=== PATIENT | female | born 1965 | race Caucasian/White ===

== ENCOUNTER 2016-08-13 09:12 | Emergency (ER) | payer OTHER ==
--- NOTE | 2016-08-13 10:09 | ED CLINICAL REPORT ---
Clinical Report - Physicians/Mid Levels [facility] [address] [place] [address] 08/13/2016 9:13 Patient: REBECCA AVENDANO, Wednesday Time Seen: 09:28. Arrived- By private vehicle. Historian- patient. HISTORY OF PRESENT ILLNESS Chief Complaint: Injury to the right wrist. The injury happened today. Fell. Occurred on a street. Patient is experiencing moderate pain. No other injury. REVIEW OF SYSTEMS The patient has had swelling. No tingling, numbness, weakness, foreign body or skin laceration. All systems otherwise negative, except as recorded above. PAST HISTORY Problems: Migraine Headache. Substance Abuse. Constipation. Immunizations. LNMP - Last Normal Menstrual Period. Hypertension. Dental Pain. Additional Surgeries: Hysterectomy. Tubal Ligation. Medications: None. Allergies: No Known Drug Allergy. SOCIAL HISTORY Smoker- current status unknown. Occasional alcohol use. No drug use. ADDITIONAL NOTES The nursing notes have been reviewed. PHYSICAL EXAM Vital Signs: 08/13/2016 09:23 BP: 130/94. HR: 95. RR: 20. O2 saturation: 100%. Temp: 98.9 F. Pain level now: 8/10. Have been reviewed. Appearance: Alert. Oriented X3. No acute distress. Head: Head atraumatic. Eyes: Pupils equal, round and reactive to light. Eyes normal inspection. ENT: Nose normal. Neck: Normal inspection. Neck supple. CVS: Normal heart rate and rhythm. Heart sounds normal. Pulses normal. Respiratory: No respiratory distress. Breath sounds normal. Back: ROM normal. Skin: Skin warm and dry. Skin intact. Extremities: Right distal radius: moderate tenderness and swelling. Limited ROM at the wrist secondary to pain (diminished flexion, extension, radial deviation and ulnar deviation). Neurovascular intact distally. No erythema, laceration, abrasion, ecchymosis or puncture wound. No foreign body or deformity. No limitation of thumb movement. No hand injury. Hand and wrist exam otherwise negative. Extremities otherwise negative. Neuro, Vascular and Tendons: Vascular status intact. Sensation intact. Motor intact. Tendon function intact. Neuro: No motor deficit. No sensory deficit. (Grossly oriented.). LABS, X-RAYS, AND EKG Rt Wrist X-ray: Normal alignment. No bony lesion, air in the soft tissue or foreign body. Fracture of the distal radius. No open, comminuted, intraarticular, displaced or angulated right radius fracture. Soft tissues normal. Joint spaces normal. Views: AP, lateral and oblique. Technique: good. The X-rays were independently viewed by me, interpreted by the radiologist and contemporaneously by me and discussed with the radiologist. Prior films were not available for comparison. Pulse Oximetry: 08/13/2016 09:23 O2 saturation: 100%. (FIO2 - room air). Interpretation: normal. PROGRESS AND PROCEDURES Splint Application: Fiberglass short arm splint applied to right wrist. Splint applied by nazario with direct supervision by me and the ED physician. Reassessed extremity following splint application. Neurovascular intact. Course of Care: Pt was splinted and given an Rx for pain medication. Need for ortho f/u was discussed. Patient counseled in person regarding the patient's stable condition, test results, diagnosis and need for follow-up. Concerns were addressed. Old medical records reviewed. Disposition: Discharged. Condition: stable and improved. CLINICAL IMPRESSION Closed nondisplaced transverse fracture of the distal right radius. No intraarticular fracture of the radius. No angulated fracture of the radius. INSTRUCTIONS Apply ice for 15-20 minutes three times a day as needed and until better. Don't apply ice directly to skin and don't use while asleep. Warnings: GENERAL WARNINGS: Return or contact your physician immediately if your condition worsens or changes unexpectedly, if not improving as expected, or if other problems arise. Prescription Medications: Oxycodone/APAP 5 mg/325 mg: take 1-2 tablets orally every 6 hours as needed for pain. Dispense fifteen (15). No refill. Understanding of the discharge instructions verbalized by patient. Follow-up with: Brady Adames MD, Orthopedic Surgeon, , [address], , [place], [id number] Follow up. Call for the next available appointment. Reason for referral: Wrist fracture. (Electronically signed by Judith Hinojosa MD 08/17/2016 11:18)
--- NOTE | 2016-08-13 10:09 | ED CLINICAL REPORT ---
Clinical Report - Physicians/Mid Levels [facility] [address] [place] [address] 08/13/2016 9:13 Patient: REBECAC AVENDANO, Wednesday Time Seen: 09:28. Arrived- By private vehicle. Historian- patient. HISTORY OF PRESENT ILLNESS Chief Complaint: Injury to the right wrist. The injury happened today. Fell. Occurred on a street. Patient is experiencing moderate pain. No other injury. REVIEW OF SYSTEMS The patient has had swelling. No tingling, numbness, weakness, foreign body or skin laceration. All systems otherwise negative, except as recorded above. PAST HISTORY Problems: Migraine Headache. Substance Abuse. Constipation. Immunizations. LNMP - Last Normal Menstrual Period. Hypertension. Dental Pain. Additional Surgeries: Hysterectomy. Tubal Ligation. Medications: None. Allergies: No Known Drug Allergy. SOCIAL HISTORY Smoker- current status unknown. Occasional alcohol use. No drug use. ADDITIONAL NOTES The nursing notes have been reviewed. PHYSICAL EXAM Vital Signs: 08/13/2016 09:23 BP: 130/94. HR: 95. RR: 20. O2 saturation: 100%. Temp: 98.9 F. Pain level now: 8/10. Have been reviewed. Appearance: Alert. Oriented X3. No acute distress. Head: Head atraumatic. Eyes: Pupils equal, round and reactive to light. Eyes normal inspection. ENT: Nose normal. Neck: Normal inspection. Neck supple. CVS: Normal heart rate and rhythm. Heart sounds normal. Pulses normal. Respiratory: No respiratory distress. Breath sounds normal. Back: ROM normal. Skin: Skin warm and dry. Skin intact. Extremities: Right distal radius: moderate tenderness and swelling. Limited ROM at the wrist secondary to pain (diminished flexion, extension, radial deviation and ulnar deviation). Neurovascular intact distally. No erythema, laceration, abrasion, ecchymosis or puncture wound. No foreign body or deformity. No limitation of thumb movement. No hand injury. Hand and wrist exam otherwise negative. Extremities otherwise negative. Neuro, Vascular and Tendons: Vascular status intact. Sensation intact. Motor intact. Tendon function intact. Neuro: No motor deficit. No sensory deficit. (Grossly oriented.). LABS, X-RAYS, AND EKG Rt Wrist X-ray: Normal alignment. No bony lesion, air in the soft tissue or foreign body. Fracture of the distal radius. No open, comminuted, intraarticular, displaced or angulated right radius fracture. Soft tissues normal. Joint spaces normal. Views: AP, lateral and oblique. Technique: good. The X-rays were independently viewed by me, interpreted by the radiologist and contemporaneously by me and discussed with the radiologist. Prior films were not available for comparison. Pulse Oximetry: 08/13/2016 09:23 O2 saturation: 100%. (FIO2 - room air). Interpretation: normal. PROGRESS AND PROCEDURES Splint Application: Fiberglass short arm splint applied to right wrist. Splint applied by nazario with direct supervision by me and the ED physician. Reassessed extremity following splint application. Neurovascular intact. Course of Care: Pt was splinted and given an Rx for pain medication. Need for ortho f/u was discussed. Patient counseled in person regarding the patient's stable condition, test results, diagnosis and need for follow-up. Concerns were addressed. Old medical records reviewed. Disposition: Discharged. Condition: stable and improved. CLINICAL IMPRESSION Closed nondisplaced transverse fracture of the distal right radius. No intraarticular fracture of the radius. No angulated fracture of the radius. INSTRUCTIONS Apply ice for 15-20 minutes three times a day as needed and until better. Don't apply ice directly to skin and don't use while asleep. Warnings: GENERAL WARNINGS: Return or contact your physician immediately if your condition worsens or changes unexpectedly, if not improving as expected, or if other problems arise. Prescription Medications: Oxycodone/APAP 5 mg/325 mg: take 1-2 tablets orally every 6 hours as needed for pain. Dispense fifteen (15). No refill. Understanding of the discharge instructions verbalized by patient. Follow-up with: Brady Adames MD, Orthopedic Surgeon, , [address], , [place], [id number] Follow up. Call for the next available appointment. Reason for referral: Wrist fracture. (Electronically signed by Judith Hinojosa MD 08/17/2016 11:18)
--- NOTE | 2016-08-13 10:09 | ED ORDER SUMMARY ---
..... Patient: THREE STARS, WEDNESDAY A OrderSheet [facility] VisitID: [id number] [address] [place] [address] 50y, F Registration Date/Time: 08/13/2016 ORDER SHEET Weight: 68.0 kg (stated) Allergies: No Known Drug Allergy GENERAL ORDERS: Wrist 3 or 4V Right Urgent (09:30 08/13/2016 SStone R.N. per protocol) (Ack 9:42 RKaruga) (9:43 RKaruga) Splint (UE) (Right) (Sugar Tong) (10:05 08/13/2016 An ALEJANDRE) MEDICATION ORDERS: IV FLUIDS: ORDER SHEET NOTES: [Electronically signed by Henny Carter R.N. (16:13 08/13/2016)] [Electronically signed by Judith Hinojosa MD (11:18 08/17/2016)] [Electronically locked/signed by Henny Carter R.N. (16:13 08/13/2016)]
--- NOTE | 2016-08-13 10:09 | ED NURSING NOTES ---
Clinical Report - Nurses [facility] [place] [address] 08/13/2016 9:13 Patient: REBECCA AVENDANO, Wednesday TRIAGE Triage time 09:23. Acuity: LEVEL 4. Chief Complaint: RIGHT UPPER EXTREMITY PAIN, SWELLING, NUMBNESS and TINGLING. SEPSIS SCREEN: Sepsis Screen. Negative (no infection suspected/documented). --09:27 Henny Carter R.N. 09:23 08/13/16. BP: 130/94. HR: 95. RR: 20. O2 saturation: 100%. Temp: 98.9 F. Pain level now: 03/18. --09:27 Henny Carter R.N. Weight: 68 kg stated. Height/Length: 70 inches Per Patient. BMI: 21.5. --09:26 Henny Carter R.N. Medications None. --09:24 Henny Carter R.N. Allergies No Known Drug Allergy. --09:24 Henny Carter R.N. History Arrived by private vehicle. Historian: patient. Primary physician (freddy). ( Patient slipped on the ice and fell on her outstretched right hand. Now with 8/10 pain in the right wrist, radiating up to her elbow.). This occurred just prior to arrival. It is described as radiating to the right upper extremity, upper arm and elbow. She has had swelling and numbness. PAST MEDICAL HX: Negative. SOCIAL HX: Heavy tobacco smoker- less than 1 pack per day. Alcohol use; consumes beer occasionally. No drug use. No infectious disease exposure. ABUSE ASSESSMENT: No report of abuse. SELF HARM ASSESSMENT: A self harm assessment was performed. The patient answered "no" to the question "Do you have thoughts of harming or killing yourself?". --:27 Henny Carter R.N. Interventions ID band on patient. To treatment room. --:27 Henny Carter R.N. PHYSICAL ASSESSMENT Ambulatory to room. GENERAL / NEURO / PSYCH: Oriented X 4. Appears in pain and anxious. EXTREMITIES: Right elbow: tenderness. Right wrist: tenderness, swelling and erythema. Limited ROM secondary to pain (diminished flexion and extension). SKIN: Skin intact. Skin is warm and dry. --09:31 Henny Carter R.N. NURSING PROGRESS NOTES The plan of care for this patient includes an assessment with efforts to address the patient's anxiety. This plan of care was discussed with the patient. Cold pack applied. Reassurance given. Call light placed in reach. Side rails up. Patient ready for evaluation- chart flagged. Patient waiting for evaluation and radiology results. --09:32 Henny Carter R.N. ( XRay in room). --09:43 Enedelia Quinteros. DISPOSITION / DISCHARGE 10:54 08/13/16. BP: 136/92. HR: 62. RR: 22. O2 saturation: 100%. Pain level now: 01/16. --10:55 Henny Carter R.N. Condition at departure: improved and stable. The goals identified in the patient's plan of care were met. Discharge instructions provided and reviewed with the patient. Reviewed warnings. Reviewed medication(s) side effects information. Prescription(s) given to the patient. Patient verbalized understanding. Written instructions provided in Malay. The patient was discharged home. She left the Emergency Department ambulatory and via private vehicle. Patient driving. --11:20 Henny Carter R.N. Departure time: 1118. --11:20 Henny Carter R.N. Locked/Released at 08/13/2016 16:13 by Henny Carter R.N.
--- NOTE | 2016-08-13 10:09 | ED ORDER SUMMARY ---
..... Patient: THREE STARS, WEDNESDAY A OrderSheet [facility] VisitID: [id number] [address] [place] [address] 50y, F Registration Date/Time: 08/13/2016 ORDER SHEET Weight: 68.0 kg (stated) Allergies: No Known Drug Allergy GENERAL ORDERS: Wrist 3 or 4V Right Urgent (09:30 08/13/2016 SStone R.N. per protocol) (Ack 9:42 RKaruga) (9:43 RKaruga) Splint (UE) (Right) (Sugar [place]) (10:05 08/13/2016 An ALEJANDRE) MEDICATION ORDERS: IV FLUIDS: ORDER SHEET NOTES: [Electronically signed by Henny Carter R.N. (16:13 08/13/2016)] [Electronically signed by Jduith Hinojosa MD (11:18 08/17/2016)] [Electronically locked/signed by Henny Carter R.N. (16:13 08/13/2016)]
--- NOTE | 2016-08-13 13:17 | DIAGNOSTIC IMAGING REPORT ---
PROCEDURE: XR WRIST MIN 3 VIEWS - RIGHT INDICATION: TRAUMA/INJURY TECHNIQUE: Four views of the right wrist. COMPARISON: None. FINDINGS: There is an impaction fracture of the distal radius. There is a minimal displacement. IMPRESSION: 1. Impaction fracture distal radius.
--- NOTE | 2016-08-17 11:19 | ED DISCHARGE INSTRUCTIONS ---
Patient: THREE STARS, Wednesday General Instructions [facility] VisitID: [id number] [place] [address] 50y, F Registration Date/Time: 08/13/2016 Closed nondisplaced transverse fracture of the distal right radius. No intraarticular fracture of the radius. No angulated fracture of the radius. INSTRUCTIONS Apply ice for 15-20 minutes three times a day as needed and until better. Don't apply ice directly to skin and don't use while asleep. Warnings: GENERAL WARNINGS: Return or contact your physician immediately if your condition worsens or changes unexpectedly, if not improving as expected, or if other problems arise. Prescription Medications: Oxycodone/APAP 5 mg/325 mg: take 1-2 tablets orally every 6 hours as needed for pain. Dispense fifteen (15). No refill. Understanding of the discharge instructions verbalized by patient. Follow-up with: Brady Adames MD, Orthopedic Surgeon, , [address], , [place], [id number] Follow up. Call for the next available appointment. Reason for referral: Wrist fracture. ADDITIONAL INFORMATION Fracture: Wrist (General) You have a fracture (break) of a bone in your wrist. This may be a small crack or chip in the bone; or a major break with the broken parts pushed out of position. Wrist fractures are treated with a splint or cast. They take about 4-6 weeks to heal. Severe injuries may require surgery. Home Care: Keep your arm elevated to reduce pain and swelling. When sitting or lying down elevate your arm above the level of your heart. You can do this by placing your arm on a pillow that rests on your chest or on a pillow at your side. This is most important during the first 48 hours after injury. Apply an ice pack (ice cubes in a plastic bag, wrapped in a towel) over the injured area for 20 minutes every 1-2 hours the first day. You can place the ice pack inside the sling and directly over the splint/cast. Continue with ice packs 3-4 times a day for the next two days, then as needed for the relief of pain and swelling. Keep the cast/splint completely dry at all times. Bathe with your cast/splint out of the water, protected with a large plastic bag, rubber-banded at the top end. If a fiberglass splint/cast gets wet, you can dry it with a hair-dryer. You may use acetaminophen (Tylenol) or ibuprofen (Motrin, Advil) to control pain, unless another pain medicine was prescribed. [NOTE: If you have chronic liver or kidney disease or ever had a stomach ulcer or GI bleeding, talk with your doctor before using these medicines.] Follow Up with your doctor in one week, or as advised by our staff, to be sure the bone is healing properly. If a splint was applied, it will be changed to a cast during your follow-up visit. [NOTE: Any X-rays taken will be reviewed by a radiologist. You will be notified if there are any new findings that may affect your care.] Get Prompt Medical Attention if any of the following occur: The plaster cast or splint becomes wet or soft The fiberglass cast or splint remains wet for more than 24 hours Increased tightness or pain under the cast or splint Fingers become swollen, cold, blue, numb or tingly You have been given the following additional information: Fracture, Wrist [General] (Electronically signed by Judith Hinojosa MD 08/17/2016 11:18)
--- NOTE | 2016-08-17 11:19 | ED DISCHARGE INSTRUCTIONS ---
Patient: THREE STARS, Wednesday General Instructions [facility] VisitID: [id number] [place] [address] 50y, F Registration Date/Time: 08/13/2016 Closed nondisplaced transverse fracture of the distal right radius. No intraarticular fracture of the radius. No angulated fracture of the radius. INSTRUCTIONS Apply ice for 15-20 minutes three times a day as needed and until better. Don't apply ice directly to skin and don't use while asleep. Warnings: GENERAL WARNINGS: Return or contact your physician immediately if your condition worsens or changes unexpectedly, if not improving as expected, or if other problems arise. Prescription Medications: Oxycodone/APAP 5 mg/325 mg: take 1-2 tablets orally every 6 hours as needed for pain. Dispense fifteen (15). No refill. Understanding of the discharge instructions verbalized by patient. Follow-up with: Brady Adames MD, Orthopedic Surgeon, , [address], , [place], [address] Follow up. Call for the next available appointment. Reason for referral: Wrist fracture. ADDITIONAL INFORMATION Fracture: Wrist (General) You have a fracture (break) of a bone in your wrist. This may be a small crack or chip in the bone; or a major break with the broken parts pushed out of position. Wrist fractures are treated with a splint or cast. They take about 4-6 weeks to heal. Severe injuries may require surgery. Home Care: Keep your arm elevated to reduce pain and swelling. When sitting or lying down elevate your arm above the level of your heart. You can do this by placing your arm on a pillow that rests on your chest or on a pillow at your side. This is most important during the first 48 hours after injury. Apply an ice pack (ice cubes in a plastic bag, wrapped in a towel) over the injured area for 20 minutes every 1-2 hours the first day. You can place the ice pack inside the sling and directly over the splint/cast. Continue with ice packs 3-4 times a day for the next two days, then as needed for the relief of pain and swelling. Keep the cast/splint completely dry at all times. Bathe with your cast/splint out of the water, protected with a large plastic bag, rubber-banded at the top end. If a fiberglass splint/cast gets wet, you can dry it with a hair-dryer. You may use acetaminophen (Tylenol) or ibuprofen (Motrin, Advil) to control pain, unless another pain medicine was prescribed. [NOTE: If you have chronic liver or kidney disease or ever had a stomach ulcer or GI bleeding, talk with your doctor before using these medicines.] Follow Up with your doctor in one week, or as advised by our staff, to be sure the bone is healing properly. If a splint was applied, it will be changed to a cast during your follow-up visit. [NOTE: Any X-rays taken will be reviewed by a radiologist. You will be notified if there are any new findings that may affect your care.] Get Prompt Medical Attention if any of the following occur: The plaster cast or splint becomes wet or soft The fiberglass cast or splint remains wet for more than 24 hours Increased tightness or pain under the cast or splint Fingers become swollen, cold, blue, numb or tingly You have been given the following additional information: Fracture, Wrist [General] (Electronically signed by Judith Hinojosa MD 08/17/2016 11:18)
--- NOTE | 2016-08-17 11:19 | ED MAR SUMMARY ---
..... Medication Administration Record [facility] [address] [place], [place] [id number] Patient: THREE , Wednesday Visit ID: [id number] 50y, F Weight: 68.0 kg Height/Length: 70 in BMI: 21.5 ALLERGIES: No Known Drug Allergy
--- NOTE | 2016-08-17 11:19 | ED MED RECONCILIATION SUMMARY ---
Patient: THREE STARS, WEDNESDAY A Medication Reconciliation Report [facility] VisitID: [id number] [place] [address] 50y, F Registration Date/Time: 08/13/2016 Weight: 68.0 kg Height/Length: 70 in. BMI: 21.5 ALLERGIES: No Known Drug Allergy The patient's Home Medications are listed below: NONE. The source(s) of the original Home Medication information: Not obtained. The following Medications were given to the patient in the Emergency Department: None. The following Medications were prescribed to the patient: Oxycodone/APAP 5 mg/325 mg: take 1-2 tablets orally every 6 hours as needed for pain. Dispense fifteen (15). No refill. -- Judith Hinojosa MD
--- NOTE | 2016-08-17 11:19 | ED MED RECONCILIATION SUMMARY ---
Patient: THREE STARS, WEDNESDAY A Medication Reconciliation Report [facility] VisitID: [id number] [place] [address] 50y, F Registration Date/Time: 08/13/2016 Weight: 68.0 kg Height/Length: 70 in. BMI: 21.5 ALLERGIES: No Known Drug Allergy The patient's Home Medications are listed below: NONE. The source(s) of the original Home Medication information: Not obtained. The following Medications were given to the patient in the Emergency Department: None. The following Medications were prescribed to the patient: Oxycodone/APAP 5 mg/325 mg: take 1-2 tablets orally every 6 hours as needed for pain. Dispense fifteen (15). No refill. -- Judith Hinojosa MD
--- NOTE | 2016-08-17 11:19 | ED MAR SUMMARY ---
..... Medication Administration Record [facility] [address] [place], [place] [id number] Patient: THREE , Wednesday Visit ID: [id number] 50y, F Weight: 68.0 kg Height/Length: 70 in BMI: 21.5 ALLERGIES: No Known Drug Allergy
== END 2016-08-13 11:18 | disposition home or self-care (01) ==
LOC: ED SRH 09:12
DX: S52.501A Unspecified fracture of the lower end of right radius, initial encounter for closed fracture (principal); W19.XXXA Unspecified fall, initial encounter; Y93.9 Activity, unspecified; Y92.410 Unspecified street and highway as the place of occurrence of the external cause; Y99.9 Unspecified external cause status; I10 Essential (primary) hypertension; F17.200 Nicotine dependence, unspecified, uncomplicated

== ENCOUNTER 2016-09-05 11:55 | Emergency (ER) | payer OTHER ==
--- NOTE | 2016-09-05 13:13 | ED CLINICAL REPORT ---
Clinical Report - Physicians/Mid Levels [facility] [address] [place] [address] 09/05/2016 11:55 Patient: REBECCA AVENDANO, Wednesday Time Seen: 12:25. Arrived- By private vehicle. Historian- patient. HISTORY OF PRESENT ILLNESS Chief Complaint: BACK PAIN Right wrist and hand pain. Right mid back pain. This started several weeks ago and is still present. It was gradual in onset and has been waxing/waning. At its maximum, severity described as moderate. When seen in the E.D., severity described as moderate. Modifying factors- worsened by movement and walking. Relieved by rest. No fatigue or weakness. Denies sleep problem. She has had muscle aches (right mid back - states, "muscle spasms"). (Pt states that the splint is irritating her.). Similar symptoms previously: Recent medical care: The patient was seen recently at this facility in the emergency department. REVIEW OF SYSTEMS The patient has had a hysterectomy. No fever, sore throat, sinus drainage, cough or difficulty breathing. No abdominal pain, nausea, vomiting, diarrhea or black stools. No bloody stools, chills, difficulty with urination, abnormal bleeding or skin rash. No headache. The patient has had moderate mid back pain. No sensory loss, motor weakness or symptom related to bladder or bowel dysfunction. It has been similar to previous symptoms. No pain radiating to left leg or right leg. She has had mild difficulty with ambulation (mid back). It has been associated with pain. All systems otherwise negative, except as recorded above. PAST HISTORY PROBLEMS: Radius Fracture. Migraine Headache. Substance Abuse. Abdominal Pain. Pyelonephritis. Cervical Strain. Back Pain. UTI - Urinary Tract Infection. Constipation. Hypertension. Dental Pain. Dental Caries. SURGERIES: Hysterectomy. Tubal Ligation. SOCIAL HISTORY Smoker- current status unknown. Occasional alcohol use. History of drug use: marijuana. ADDITIONAL NOTES The nursing notes have been reviewed. PHYSICAL EXAM Vital Signs: 09/05/2016 12:10 BP: 160/100. HR: 86. RR: 18. O2 saturation: 99%. Temp: 98.1 F. Pain level now: 03/18. Appearance: Alert. Anxious. Patient in mild distress. Eyes: Eyes normal inspection. No scleral icterus or pale conjunctivae. ENT: Nose normal. Neck: Normal inspection. Neck supple. CVS: Normal heart rate and rhythm. Heart sounds normal. Pulses normal. Respiratory: No respiratory distress. Breath sounds normal. Chest nontender. Abdomen: No visible injury. Soft and nontender. No mass. Back: Normal inspection. Moderate soft-tissue tenderness in the right mid thoracic area. No CVA tenderness or vertebral point tenderness. Skin: Skin warm and dry. Normal skin color. No rash. Normal skin turgor. Extremities: Right wrist: moderate tenderness and mild swelling. Limited ROM secondary to pain. Neurovascular intact distally. No erythema, laceration, abrasion, ecchymosis or puncture wound. No foreign body or deformity. No lower extremity edema. Neuro: Oriented X 3. No motor deficit. No sensory deficit. LABS, X-RAYS, AND EKG Pulse Oximetry: 09/05/2016 12:10 O2 saturation: 99%. (FIO2 - room air). Interpretation: normal. PROGRESS AND PROCEDURES Splint Application: Fiberglass short arm splint and sugar tong splint applied to right wrist and forearm. Splint applied by tech with direct supervision by the ED physician. Reassessed extremity following splint application. Neurovascular intact. Course of Care: Zofran 4 mg ODT PO given. Flexeril 10 mg PO given. No signs of compartment syndrome or RSD now - pt has been splinted (no cast). She was unable to f/u with hand / ortho surgery for reported insurance reasons. She has pcp follow up for referral on Wednesday. New splint applied. Pt also with muscular right mid thoracic area pain. Patient/family counseled. Old ED records reviewed. Disposition: Discharged. Condition: stable and improved. CLINICAL IMPRESSION Essential hypertension. Chronic substance abuse- tobacco (cigarettes), marijuana. Acute nontraumatic thoracic back pain associated with muscle strain. No radiculopathy. Closed nondisplaced transverse fracture of the right distal radius. INSTRUCTIONS Wear fiberglass splint until released. Do not work for three days. Drink plenty of fluids. Do not smoke. Seek medical help to quit smoking. No alcohol. Warnings: Further evaluation is necessary in order to recheck abnormal lab, obtain test results, conduct further tests and assess the possibility of serious illness. It is very important to follow up with a physician. CONTROLLED SUBSTANCE WARNINGS. GENERAL WARNINGS: Return or contact your physician immediately if your condition worsens or changes unexpectedly, if not improving as expected, or if other problems arise. Prescription Medications: Hydrocodone/APAP 5mg / 325mg: take 1-2 orally every 12 hours as needed for pain. Dispense ten (10). No refill. Flexeril 10 mg: Take 1 orally every 8 hours as needed for muscle spasm. Dispense twenty (20). No refills. Substitution is permissible. Follow-up: Follow up with your doctor Iker Wednesday as scheduled. (Electronically signed by Matt Garcia DO 09/05/2016 16:22)
--- NOTE | 2016-09-05 13:13 | ED NURSING NOTES ---
Clinical Report - Nurses [facility] [place] [address] 09/05/2016 11:55 Patient: REBECCA AVENDANO, Wednesday TRIAGE Triage time 12:15. Acuity: LEVEL 3. Chief Complaint: RIGHT UPPER EXTREMITY PAIN, SWELLING and NUMBNESS. Location of symptoms- (Ring from rt 5th finger cut off.). LEFT UPPER EXTREMITY NUMBNESS. Alert. No acute distress. SEPSIS SCREEN: Sepsis Screen: negative. Negative (no infection suspected/documented). EMILY COMA SCORE: Emily Coma Scale: 15- eyes open spontaneously (4); best verbal response- oriented x 4 (5); best motor response- obeys commands (6). --12:24 Iris Quinn R.N. 12:10 09/05/16. BP: 160/100. HR: 86. RR: 18. O2 saturation: 99%. Temp: 98.1 F. Pain level now: 03/18. --12:24 Iris Quinn R.N. Weight: 68 kg stated. Height/Length: 71 inches Per Patient. BMI: 20.9. --12:20 Iris Quinn R.N. Medications None. --12:20 Iris Quinn R.N. Allergies No Known Drug Allergy. --12:20 Iris Quinn R.N. Medication/allergy information source: the patient. --12:24 Iris Quinn R.N. History Arrived by private vehicle. Historian: patient. Accompanied by family. Primary physician (freddy). Injury occurred. Location of injuries: right wrist. This occurred (3 weeks ago). It is described as radiating to the right upper extremity and hand. She has had swelling, redness and numbness. Treatment BUSINESS APPLICATIONS ANALYST: Ice and splint. PAST MEDICAL HX: Tetanus status: unknown. The patient has had a hysterectomy. SOCIAL HX: Light tobacco smoker (cigarette)- less than 1/2 a pack per day. Occasional alcohol use. History of drug use: marijuana. Recently used drugs days ago. No infectious disease exposure. ABUSE ASSESSMENT: No report of abuse. FALL RISK ASSESSMENT: Fall risk assessment completed. No fall risk identified. NUTRITIONAL RISK ASSESSMENT: The nutritional risk assessment revealed no deficiencies. FUNCTIONAL ASSESSMENT: Functional assessment: no impairments noted. LEARNING NEEDS ASSESSMENT: The learning needs assessment revealed no barriers. SKIN INTEGRITY ASSESSMENT: Skin integrity risk assessment completed. No skin integrity risk identified. --12:24 Iris Quinn R.N. PROBLEMS: Radius Fracture. Migraine Headache. Substance Abuse. Abdominal Pain. Pyelonephritis. Cervical Strain. Back Pain. UTI - Urinary Tract Infection. Constipation. Hypertension. Dental Pain. Dental Caries. --12:22 Iris Quinn R.N. ADDITIONAL SURGERIES: Hysterectomy. Tubal Ligation. --12:22 Iris Quinn R.N. Interventions ID band on patient. To room. --12:24 Iris Quinn R.N. PHYSICAL ASSESSMENT Ambulatory to room. GENERAL / NEURO / PSYCH: Appears in pain and anxious. She has had pre-existing intermittent numbness with tingling. EXTREMITIES: Erythema on the extremities. Upper extremity edema. Right wrist: tenderness and swelling. SKIN: Skin intact. Skin is warm and dry. --12:25 Iris Quinn R.N. NURSING PROGRESS NOTES Cold pack applied. Extremity elevated. Two patient identifiers checked. Call light placed in reach. Side rails up x 1. Bed placed in lowest position. Brakes of bed on. Patient ready for evaluation- chart flagged. --12:25 Iris Quinn R.N. Short arm sugar tong fiberglass upper extremity splint applied to right arm by tech. Distal pulses intact, sensation intact and motor within normal limits. --13:58 Brendan Whatley 13:32 09/05/2016 Zofran ODT (Ondansetron) PO 4 mg given. Allergies verified and confirmed 5 rights. --16:03 Iris Quinn R.N. 13:33 09/05/2016 Flexeril (Cyclobenzaprine HCl) PO 10 mg given. Allergies verified and confirmed 5 rights. --16:04 Iris Quinn R.N. DISPOSITION / DISCHARGE 13:00. Condition at departure: improved. No learning barriers present. Discharge instructions provided and reviewed with the patient. Reviewed medication(s) side effects, precautions, dosing and course information. Prescription(s) given to the patient. Work note given. Patient verbalized understanding. Written instructions provided in Sudanese. The patient was discharged home. She left the Emergency Department ambulatory and via private vehicle. Patient driving. Medication list reviewed and validated. --16:02 Iris Quinn R.N. 13:00 09/05/16. BP: 165/98. HR: 89. RR: 18. O2 saturation: 100% on room air. Temp: deferred. Pain level now: 11/16. 12:10 09/05/16. BP: 160/100. HR: 86. RR: 18. O2 saturation: 99%. Temp: 98.1 F. Pain level now: 03/18. --16:02 Iris Quinn R.N. Departure time: 1345, the correct dc time. --16:05 Iris Quinn R.N. Locked/Released at 09/05/2016 16:20 by Iris Quinn R.N.
--- NOTE | 2016-09-05 13:14 | ED ORDER SUMMARY ---
..... Patient: REBECCA , WEDNESDAY A OrderSheet [facility] VisitID: [id number] [place] [address] 50y, F Registration Date/Time: 09/05/2016 ORDER SHEET Weight: 68.0 kg (stated) Allergies: No Known Drug Allergy GENERAL ORDERS: Wrist 3 or 4V Right Urgent (12:40 09/05/2016 [facility]) (Ack 13:06 LTapper) (13:08 Raheel) Splint (UE) (Right) (Sugar Tong) (Short Arm) (12:40 09/05/2016 [facility]) (Ack 12:58 Bob) (13:31 SRoberts R.N.) MEDICATION ORDERS: Hydrocodone-APAP PO 5/325 mg (NOW, HIGH ALERT MEDICATION) (13:17 09/05/2016 [facility]) (Ack 13:31 SRoberts R.N.) (Cancelled: Other13:36 [facility]) Zofran ODT PO 4 mg (NOW) (13:17 09/05/2016 [facility]) (Ack 13:31 SRoberts R.N.) (16:03 SRoberts R.N.) Flexeril PO 10 mg (NOW) (13:18 09/05/2016 [facility]) (Ack 13:31 SRoberts R.N.) (16:04 SRoberts R.N.) IV FLUIDS: ORDER SHEET NOTES: [Electronically signed by Iris Quinn R.N. (16:20 09/05/2016)] [Electronically signed by Matt Garcia DO (16:22 09/05/2016)] [Electronically locked/signed by Iris Quinn R.N. (16:20 09/05/2016)]
--- NOTE | 2016-09-05 13:14 | ED ORDER SUMMARY ---
..... Patient: REBECCA , WEDNESDAY A OrderSheet [facility] VisitID: [id number] [place] [address] 50y, F Registration Date/Time: 09/05/2016 ORDER SHEET Weight: 68.0 kg (stated) Allergies: No Known Drug Allergy GENERAL ORDERS: Wrist 3 or 4V Right Urgent (12:40 09/05/2016 [facility]) (Ack 13:06 LTapper) (13:08 Raheel) Splint (UE) (Right) (Sugar Tong) (Short Arm) (12:40 09/05/2016 [facility]) (Ack 12:58 Bob) (13:31 SRoberts R.N.) MEDICATION ORDERS: Hydrocodone-APAP PO 5/325 mg (NOW, HIGH ALERT MEDICATION) (13:17 09/05/2016 [facility]) (Ack 13:31 SRoberts R.N.) (Cancelled: Other13:36 [facility]) Zofran ODT PO 4 mg (NOW) (13:17 09/05/2016 [facility]) (Ack 13:31 SRoberts R.N.) (16:03 SRoberts R.N.) Flexeril PO 10 mg (NOW) (13:18 09/05/2016 [facility]) (Ack 13:31 SRoberts R.N.) (16:04 SRoberts R.N.) IV FLUIDS: ORDER SHEET NOTES: [Electronically signed by Iris Quinn R.N. (16:20 09/05/2016)] [Electronically signed by Matt Garcia DO (16:22 09/05/2016)] [Electronically locked/signed by Iris Quinn R.N. (16:20 09/05/2016)]
--- NOTE | 2016-09-05 14:04 | DIAGNOSTIC IMAGING REPORT ---
PROCEDURE: XR WRIST MIN 3 VIEWS - RIGHT INDICATION: Right radius fracture, follow-up TECHNIQUE: Four views COMPARISON: Right wrist x-ray 08/13/2016 FINDINGS: Minimally displaced impaction fracture distal radius is essentially unchanged. No other significant findings. IMPRESSION: 1. Stable minimally displaced impaction fracture of the distal right radius
--- NOTE | 2016-09-05 16:23 | ED MAR SUMMARY ---
..... Medication Administration Record [facility] [address] [place] [address] Patient: REBECCA , Wednesday Visit ID: [id number] 50y, F Weight: 68.0 kg Height/Length: 71 in BMI: 20.9 ALLERGIES: No Known Drug Allergy Given 13:32 09/05/2016 Iris Quinn R.N. Medication Administered: ZOFRAN ODT [PO] (ONDANSETRON), Dose: 4 mg PO. Medication Ordered: Zofran ODT PO 4 mg (NOW). Given 13:33 09/05/2016 Iris Quinn RPasqualeN. Medication Administered: FLEXERIL [PO] (CYCLOBENZAPRINE HCL), Dose: 10 mg PO. Medication Ordered: Flexeril PO 10 mg (NOW).
--- NOTE | 2016-09-05 16:23 | ED DISCHARGE INSTRUCTIONS ---
Patient: [facility], Wednesday General Instructions [facility] VisitID: [id number] [place] [address] 50y, F Registration Date/Time: 09/05/2016 Essential hypertension. Chronic substance abuse- tobacco (cigarettes), marijuana. Acute nontraumatic thoracic back pain associated with muscle strain. No radiculopathy. Closed nondisplaced transverse fracture of the right distal radius. INSTRUCTIONS Wear fiberglass splint until released. Do not work for three days. Drink plenty of fluids. Do not smoke. Seek medical help to quit smoking. No alcohol. Warnings: Further evaluation is necessary in order to recheck abnormal lab, obtain test results, conduct further tests and assess the possibility of serious illness. It is very important to follow up with a physician. CONTROLLED SUBSTANCE WARNINGS. GENERAL WARNINGS: Return or contact your physician immediately if your condition worsens or changes unexpectedly, if not improving as expected, or if other problems arise. Prescription Medications: Hydrocodone/APAP 5mg / 325mg: take 1-2 orally every 12 hours as needed for pain. Dispense ten (10). No refill. Flexeril 10 mg: Take 1 orally every 8 hours as needed for muscle spasm. Dispense twenty (20). No refills. Substitution is permissible. Follow-up: Follow up with your doctor Tannbecca Wednesday as scheduled. ADDITIONAL INFORMATION High Blood Pressure -- To Be Confirmed [No Tx] Your blood pressure was higher today than normal. Sometimes anxiety or pain can cause a temporary rise in blood pressure that later returns to normal. If your blood pressure is high on one measurement, this does not mean that you have hypertension (a chronic illness). However, you must have your blood pressure measured again within the next few days to find out if its still high. A normal blood pressure is 120/80 or less. The first (top) number is the "systolic" pressure. The second (bottom) number is the "diastolic" pressure. Hypertension exists when either the top number is 140 or higher, OR the bottom number is 90 or higher on repeated measurements. Blood pressure in the range of 120-140 (systolic) or 80-89 (diastolic) is considered "pre-hypertension". This means your are at risk for getting hypertension. You should have regular blood pressure checks to be sure your blood pressure is not rising. Home Care: Measure your blood pressure on 3 different days and write down the results. This can be done at your doctor's office or this facility. Some pharmacies and grocery stores offer automated blood pressure machines for your use. Follow Up: If your blood pressure is "high" (over 120/80) on 2 out of 3 days, you will need to follow up with your doctor for further evaluation and treatment. DO NOT PUT THIS OFF! Untreated high blood pressure increases the risk for heart attack, also known as acute myocardial infarction, or AMI, and stroke. It is a treatable condition. Get Prompt Medical Attention if any of the following occur: Chest pain or shortness of breath Severe headache Throbbing or rushing sound in the ears Nosebleed Sudden severe abdominal pain Extreme drowsiness, confusion or fainting Dizziness or vertigo (dizziness with spinning sensation) Weakness of an arm or leg or one side of the face Difficulty with speech or vision Marijuana Abuse Marijuana is the most widely used illegal drug in the [place]. It is called by various names such as pot, weed, blunts, grass, reefer, ganja, hash, hashish. It is usually smoked but can be mixed with foods or brewed as a tea. It is sometimes sold with PCP (Rubio Dust) or amphetamine mixed in it. These drugs can cause other harmful side effects. Marijuana can cause the following effects: Changes in mood (stimulated, happy, drowsy, depressed, paranoid) Hallucinations Increased heart rate and blood pressure Increased appetite Time distortion, difficulty concentrating, impaired memory Lung damage (similar to cigarettes with chronic cough, wheezing, frequent colds and bronchitis) You can become psychologically dependent on marijuana. That means the craving to use the drug is emotional or psychological rather than due to physical withdrawal. Is Marijuana Running Your Life? Here are some of the signs: Relying on marijuana to feel good, forget problems, deal with stress or to relax Wanting to be alone most of the time or only with others who use drugs Losing interest in things that used to be important Changes in school or job performance or attendance Spending a lot of time thinking about how to get marijuana Stealing or selling your things so you can buy marijuana Unable to stop using even though you may want to quit Increasing anxiety, anger,or depression Sleeping too much, changes in eating habits (weight loss or gain) Needing to use more to get the same effect Home Care Once you have become addicted to any drug, quitting is hard to do. Most people find they can't quit without help. So, dont try to do this alone. Talk to someone you trust who can support you. Seek professional help. Avoid people and places where drugs are used. That only increases the temptation to use. Follow Up with your doctor or as advised by our staff. For more information or a referral to a treatment center in your area, contact: Your local mental health center or the National Alcohol and Substance Abuse Information Center (667)-365-6133 www.addictioncareNusirt.Money Dashboard National [place] on Alcoholism and Drug Dependence 600-662-WSAL www.ncadd.org Marijuana Anonymous 552-789-6684 www.marijuana-anonymous.org Get Prompt Medical Attention if any of the following occur: You feel extreme depression, fear, anxiety, or anger toward yourself or others You feel out of control You feel that you may try to harm yourself or another Back Pain [Acute Or Chronic] Back pain is usually caused by an injury to the muscles or ligaments of the spine. Sometimes the disks that separate each bone in the spine may bulge and cause pain by pressing on a nearby nerve. Back pain may also appear after a sudden twisting/bending force (such as in a car accident), after a simple awkward movement, or lifting something heavy with poor body positioning. In either case, muscle spasm is often present and adds to the pain. Acute back pain usually gets better in one to two weeks. Back pain related to disk disease, arthritis in the spinal joints or spinal stenosis (narrowing of the spinal canal) can become chronic and last for months or years. Unless you had a physical injury (for example, a car accident or fall) X-rays are usually not ordered for the initial evaluation of back pain. If pain continues and does not respond to medical treatment, x-rays and other tests may be performed at a later time. Home Care: You may need to stay in bed the first few days. But, as soon as possible, begin sitting or walking to avoid problems with prolonged bed rest (muscle weakness, worsening back stiffness and pain, blood clots in the legs). When in bed, try to find a position of comfort. A firm mattress is best. Try lying flat on your back with pillows under your knees. You can also try lying on your side with your knees bent up towards your chest and a pillow between your knees. Avoid prolonged sitting. This puts more stress on the lower back than standing or walking. During the first two days after injury, apply an ICE PACK to the painful area for 20 minutes every 2-4 hours. This will reduce swelling and pain. HEAT (hot shower, hot bath or heating pad) works well for muscle spasm. You can start with ice, then switch to heat after two days. Some patients feel best alternating ice and heat treatments. Use the one method that feels the best to you. You may use acetaminophen (Tylenol) or ibuprofen (Motrin, Advil) to control pain, unless another pain medicine was prescribed. [NOTE: If you have chronic liver or kidney disease or ever had a stomach ulcer or GI bleeding, talk with your doctor before using these medicines.] Be aware of safe lifting methods and do not lift anything over 15 pounds until all the pain is gone. Follow Up with your doctor or this facility if your symptoms do not start to improve after one week. Physical therapy may be needed. [NOTE: If X-rays were taken, they will be reviewed by a radiologist. You will be notified of any new findings that may affect your care.] Get Prompt Medical Attention if any of the following occur: Pain becomes worse or spreads to your legs Weakness or numbness in one or both legs Loss of bowel or bladder control Numbness in the groin or genital area Fracture: Wrist (General) You have a fracture (break) of a bone in your wrist. This may be a small crack or chip in the bone; or a major break with the broken parts pushed out of position. Wrist fractures are treated with a splint or cast. They take about 4-6 weeks to heal. Severe injuries may require surgery. Home Care: Keep your arm elevated to reduce pain and swelling. When sitting or lying down elevate your arm above the level of your heart. You can do this by placing your arm on a pillow that rests on your chest or on a pillow at your side. This is most important during the first 48 hours after injury. Apply an ice pack (ice cubes in a plastic bag, wrapped in a towel) over the injured area for 20 minutes every 1-2 hours the first day. You can place the ice pack inside the sling and directly over the splint/cast. Continue with ice packs 3-4 times a day for the next two days, then as needed for the relief of pain and swelling. Keep the cast/splint completely dry at all times. Bathe with your cast/splint out of the water, protected with a large plastic bag, rubber-banded at the top end. If a fiberglass splint/cast gets wet, you can dry it with a hair-dryer. You may use acetaminophen (Tylenol) or ibuprofen (Motrin, Advil) to control pain, unless another pain medicine was prescribed. [NOTE: If you have chronic liver or kidney disease or ever had a stomach ulcer or GI bleeding, talk with your doctor before using these medicines.] Follow Up with your doctor in one week, or as advised by our staff, to be sure the bone is healing properly. If a splint was applied, it will be changed to a cast during your follow-up visit. [NOTE: Any X-rays taken will be reviewed by a radiologist. You will be notified if there are any new findings that may affect your care.] Get Prompt Medical Attention if any of the following occur: The plaster cast or splint becomes wet or soft The fiberglass cast or splint remains wet for more than 24 hours Increased tightness or pain under the cast or splint Fingers become swollen, cold, blue, numb or tingly Splint Care, Fiberglass The following will help you care for your splint: It will take up totwo hours for your fiber glass splint to fully harden; therefore, do notapply any pressure on it during that time or else it may break. To prevent swelling under the splint, for thefirst 48 hours: If the splint is on yourarm, keep it in a sling or raised to shoulder level when sitting or standing; rest it on your chest or on a pillow at your side when lying down. If the splint is on yourfoot, keep it propped up above the level of your waist when sitting or lying. Avoid crutch walking as much as possible during this time. Keep the splint/cast dry at all times. Bathe with your splint/cast well out of the water, protected with a large plastic bag, rubber-banded at the top end. If a fiberglass cast or splint gets wet, you can dry it with a hair-dryer. Follow-up care Follow up with your doctor or this facility as advised. When to seek medical care Get prompt medical attention if any of the following occur: Bad odor from the splint or wound-fluid stains the splint The splint cracks or remains wet over 24 hours Increasing tightness or pressure under the splint Fingers or toes become swollen, cold, blue, numb or tingly Increased pain under the splint How To Quit Smoking Smoking is one of the hardest habits to break. About half of all those who have ever smoked have been able to quit, and most of those (about 70%) who still smoke want to quit. Here are some of the best ways to stop smoking. Keep Trying: It takes most smokers about 8 tries before they are finally able to fully quit. So, the more often you try and fail, the better your chance of quitting the next time! So, don't give up! Go Cold [place]: Most ex-smokers quit cold turkey. Trying to cut back gradually doesn't seem to work as well, perhaps because it continues the smoking habit. Also, it is possible to fool yourself by inhaling more while smoking fewer cigarettes. This results in the same amount of nicotine in your body! Get Support: Support programs can make an important difference, especially for the heavy smoker. These groups offer lectures, methods to change your behavior and peer support. Call the free national Quitline for more information. 675-BBRH-MWJ (398-597-1758). Low-cost or free programs are offered by many hospitals, local chapters of the [place] [employer] (515-659-9213) and the [place] [employer] (423-386-1497). Support at home is important too. Non-smokers can help by offering praise and encouragement. If the smoker fails to quit, encourage them to try again! Nidd-Bqw-Ztszbrg Medicines: For those who can't quit on their own, Nicotine Replacement Therapy (NRT) may make quitting much easier. Certain aids such as the nicotine patch, gum and lozenge are available without a prescription. However, it is best to use these under the guidance of your doctor. The skin patch provides a steady supply of nicotine to the body. Nicotine gum and lozenge gives temporary bursts of low levels of nicotine. Both methods take the edge off the craving for cigarettes. WARNING: If you feel symptoms of nicotine overdose, such as nausea, vomiting, dizziness, weakness, or fast heartbeat, stop using these and see your doctor. Prescription Medicines: After evaluating your smoking patterns and prior attempts at quitting, your doctor may offer a prescription medicine such as bupropion (Zyban, Wellbutrin), varenicline (Chantix, Champix), a niocotine inhaler or nasal spray. Each has its unique advantage and side effects which your doctor can review with you. Health Benefits Of Quitting: The benefits of quitting start right away and keep improving the longer you go without smokin minutes: blood pressure and pulse return to normal 8 hours: oxygen levels return to normal 2 days: ability to smell and taste begins to improve as damaged nerves start to regrow 2-3 weeks: circulation and lung function improves 1-9 months: decreased cough, congestion and shortness of breath; less tired 1 year: risk of heart attack decreases by half 5 years: risk of lung cancer decreases by half; risk of stroke becomes the same as a non-smoker For information about how to quit smoking, visit the following links: National [employer] [place] , Clearing the Air, Quit Smoking Today - an online booklet. http://www.smokefree.gov/pubs/clearing_the_air.pdf Smokefree.gov http://smokefree.gov/ QuitNet http://www.quitnet.com/ Hydrocodone Bitartrate, Acetaminophen Oral tablet What is this medicine? ACETAMINOPHEN; HYDROCODONE (a set a ISIDORO rasheeda fen; sussy droe KOE done) is a pain reliever. It is used to treat mild to moderate pain. How should I use this medicine? Take this medicine by mouth. Swallow it with a full glass of water. Follow the directions on the prescription label. If the medicine upsets your stomach, take the medicine with food or milk. Do not take more than you are told to take. Talk to your tours captain regarding the use of this medicine in children. This medicine is not approved for use in children. What side effects may I notice from receiving this medicine? Side effects that you should report to your doctor or health care coordination manager as soon as possible: allergic reactions like skin rash, itching or hives, swelling of the face, lips, or tongue breathing problems confusion feeling faint or lightheaded, falls stomach pain yellowing of the eyes or skin Side effects that usually do not require medical attention (report to your doctor or health care coordination manager if they continue or are bothersome): nausea, vomiting stomach upset What may interact with this medicine? alcohol antihistamines isoniazid medicines for depression, anxiety, or psychotic disturbances medicines for sleep muscle relaxants naltrexone narcotic medicines (opiates) for pain phenobarbital ritonavir tramadol What if I miss a dose? If you miss a dose, take it as soon as you can. If it is almost time for your next dose, take only that dose. Do not take double or extra doses. Where should I keep my medicine? Keep out of the reach of children. This medicine can be abused. Keep your medicine in a safe place to protect it from theft. Do not share this medicine with anyone. Selling or giving away this medicine is dangerous and against the law. Store at room temperature between 15 and 30 degrees C (59 and 86 degrees F). Protect from light. Keep container tightly closed. Throw away any unused medicine after the expiration date. Discard unused medicine and used packaging carefully. Pets and children can be harmed if they find used or lost packages. What should I tell my health care provider before I take this medicine? They need to know if you have any of these conditions: brain tumor Crohn's disease, inflammatory bowel disease, or ulcerative colitis drink more than 3 alcohol-containing drinks per day drug abuse or addiction head injury heart or circulation problems kidney disease or problems going to the bathroom liver disease lung disease, asthma, or breathing problems an unusual or allergic reaction to acetaminophen, hydrocodone, other opioid analgesics, other medicines, foods, dyes, or preservatives or trying to get breast-feeding What should I watch for while using this medicine? Tell your doctor or health care coordination manager if your pain does not go away, if it gets worse, or if you have new or a different type of pain. You may develop tolerance to the medicine. Tolerance means that you will need a higher dose of the medicine for pain relief. Tolerance is normal and is expected if you take the medicine for a long time. Do not suddenly stop taking your medicine because you may develop a severe reaction. Your body becomes used to the medicine. This does NOT mean you are addicted. Addiction is a behavior related to getting and using a drug for a non-medical reason. If you have pain, you have a medical reason to take pain medicine. Your doctor will tell you how much medicine to take. If your doctor wants you to stop the medicine, the dose will be slowly lowered over time to avoid any side effects. You may get drowsy or dizzy when you first start taking the medicine or change doses. Do not drive, use machinery, or do anything that may be dangerous until you know how the medicine affects you. Stand or sit up slowly. There are different types of narcotic medicines (opiates) for pain. If you take more than one type at the same time, you may have more side effects. Give your health care provider a list of all medicines you use. Your doctor will tell you how much medicine to take. Do not take more medicine than directed. Call emergency for help if you have problems breathing. The medicine will cause constipation. Try to have a bowel movement at least every 2 to 3 days. If you do not have a bowel movement for 3 days, call your doctor or health care coordination manager. Too much acetaminophen can be very dangerous. Do not take Tylenol (acetaminophen) or medicines that contain acetaminophen with this medicine. Many non-prescription medicines contain acetaminophen. Always read the labels carefully. Cyclobenzaprine Hydrochloride Oral tablet What is this medicine? CYCLOBENZAPRINE (dahlia rodriguez) is a muscle relaxer. It is used to treat muscle pain, spasms, and stiffness. How should I use this medicine? Take this medicine by mouth with a glass of water. Follow the directions on the prescription label. If this medicine upsets your stomach, take it with food or milk. Take your medicine at regular intervals. Do not take it more often than directed. Talk to your tours captain regarding the use of this medicine in children. Special care may be needed. What side effects may I notice from receiving this medicine? Side effects that you should report to your doctor or health care coordination manager as soon as possible: allergic reactions like skin rash, itching or hives, swelling of the face, lips, or tongue chest pain fast heartbeat hallucinations seizures vomiting Side effects that usually do not require medical attention (report to your doctor or health care coordination manager if they continue or are bothersome): headache What may interact with this medicine? Do not take this medicine with any of the following medications: cisapride droperidol flecainide grepafloxacin halofantrine levomethadyl MAOIs like Carbex, Eldepryl, Marplan, Nardil, and Parnate nilotinib pimozide probucol sertindole This medicine may also interact with the following medications: abarelix alcohol contrast dyes dolasetron guanethidine medicines for cancer medicines for depression, anxiety, or psychotic disturbances medicines to treat an irregular heartbeat medicines used for sleep or numbness during surgery or procedure methadone octreotide ondansetron palonosetron phenothiazines like chlorpromazine, mesoridazine, prochlorperazine, thioridazine some medicines for infection like alfuzosin, chloroquine, clarithromycin, levofloxacin, mefloquine, pentamidine, troleandomycin tramadol vardenafil What if I miss a dose? If you miss a dose, take it as soon as you can. If it is almost time for your next dose, take only that dose. Do not take double or extra doses. Where should I keep my medicine? Keep out of the reach of children. Store at room temperature between 15 and 30 degrees C (59 and 86 degrees F). Keep container tightly closed. Throw away any unused medicine after the expiration date. What should I tell my health care provider before I take this medicine? They need to know if you have any of these conditions: heart disease, irregular heartbeat, or previous heart attack liver disease thyroid problem an unusual or allergic reaction to cyclobenzaprine, tricyclic antidepressants, lactose, other medicines, foods, dyes, or preservatives or trying to get breast-feeding What should I watch for while using this medicine? Check with your doctor or health care coordination manager if your condition does not improve within 1 to 3 weeks. You may get drowsy or dizzy when you first start taking the medicine or change doses. Do not drive, use machinery, or do anything that may be dangerous until you know how the medicine affects you. Stand or sit up slowly. Your mouth may get dry. Drinking water, chewing sugarless gum, or sucking on hard candy may help. You have been given the following additional information: Hypertension, To Be Confirmed Marijuana Abuse Back Pain (Acute Or Chronic) Fracture, Wrist [General] Splint Care, Fiberglass Smoking Cessation Hydrocodone Bitartrate, Acetaminophen Oral tablet Cyclobenzaprine Hydrochloride Oral tablet Do not work for three days. (Electronically signed by Matt Garcia DO 09/05/2016 16:22)
--- NOTE | 2016-09-05 16:23 | ED MAR SUMMARY ---
..... Medication Administration Record [facility] [address] [place] [address] Patient: REBECCA , Wednesday Visit ID: [id number] 50y, F Weight: 68.0 kg Height/Length: 71 in BMI: 20.9 ALLERGIES: No Known Drug Allergy Given 13:32 09/05/2016 Iris Quinn R.N. Medication Administered: ZOFRAN ODT [PO] (ONDANSETRON), Dose: 4 mg PO. Medication Ordered: Zofran ODT PO 4 mg (NOW). Given 13:33 09/05/2016 Iris Quinn RPasqualeN. Medication Administered: FLEXERIL [PO] (CYCLOBENZAPRINE HCL), Dose: 10 mg PO. Medication Ordered: Flexeril PO 10 mg (NOW).
--- NOTE | 2016-09-05 16:23 | ED MED RECONCILIATION SUMMARY ---
Patient: THREE STARS, WEDNESDAY A Medication Reconciliation Report [facility] VisitID: [id number] [place] [address] 50y, F Registration Date/Time: 09/05/2016 Weight: 68.0 kg Height/Length: 71 in. BMI: 20.9 ALLERGIES: No Known Drug Allergy The patient's Home Medications are listed below: NONE. The source(s) of the original Home Medication information: patient The following Medications were given to the patient in the Emergency Department: Zofran ODT [PO] PO 4 mg, administered: 09/05/2016 1:32:00 PM Flexeril [PO] PO 10 mg, administered: 09/05/2016 1:33:00 PM The following Medications were prescribed to the patient: Hydrocodone/APAP 5mg / 325mg: take 1-2 orally every 12 hours as needed for pain. Dispense ten (10). No refill. -- Matt Garcia DO Flexeril 10 mg: Take 1 orally every 8 hours as needed for muscle spasm. Dispense twenty (20). No refills. Substitution is permissible. -- Matt Garcia DO
--- NOTE | 2016-09-05 16:23 | ED MED RECONCILIATION SUMMARY ---
Patient: THREE STARS, WEDNESDAY A Medication Reconciliation Report [facility] VisitID: [id number] [place] [address] 50y, F Registration Date/Time: 09/05/2016 Weight: 68.0 kg Height/Length: 71 in. BMI: 20.9 ALLERGIES: No Known Drug Allergy The patient's Home Medications are listed below: NONE. The source(s) of the original Home Medication information: patient The following Medications were given to the patient in the Emergency Department: Zofran ODT [PO] PO 4 mg, administered: 09/05/2016 1:32:00 PM Flexeril [PO] PO 10 mg, administered: 09/05/2016 1:33:00 PM The following Medications were prescribed to the patient: Hydrocodone/APAP 5mg / 325mg: take 1-2 orally every 12 hours as needed for pain. Dispense ten (10). No refill. -- Matt Garcia DO Flexeril 10 mg: Take 1 orally every 8 hours as needed for muscle spasm. Dispense twenty (20). No refills. Substitution is permissible. -- Matt Garcia DO
== END 2016-09-05 13:45 | disposition home or self-care (01) ==
LOC: ED SRH 11:55
DX: S52.592A Other fractures of lower end of left radius, initial encounter for closed fracture (principal); S29.012A Strain of muscle and tendon of back wall of thorax, initial encounter; X58.XXXA Exposure to other specified factors, initial encounter; Y92.9 Unspecified place or not applicable; Y99.9 Unspecified external cause status; Y93.9 Activity, unspecified; I10 Essential (primary) hypertension; F17.210 Nicotine dependence, cigarettes, uncomplicated; F12.10 Cannabis abuse, uncomplicated

== ENCOUNTER 2016-10-25 14:02 | Emergency (ER) | payer OTHER ==
--- NOTE | 2016-10-25 15:19 | ED NURSING NOTES ---
Clinical Report - Nurses [facility] [place] [address] 10/25/2016 14:01 Patient: REBECCA AVENDANO, Wednesday TRIAGE Acuity: LEVEL 3. Chief Complaint: COUGH and SORE THROAT. Alert. No acute distress. SEPSIS SCREEN: Sepsis Screen. Negative (no infection suspected/documented). --14:12 Isabella Sky R.N. 14:08 10/25/16. BP: 152/99. HR: 101. RR: 20. O2 saturation: 99% on room air. Temp: 98.2 F (oral). --14:12 Isabella Sky R.N. Weight: 68 kg stated. Height/Length: 70 inches Per Patient. BMI: 21.5. --14:10 Isabella Sky R.N. Medications None. --14:11 Isabella Sky R.N. Allergies No Known Drug Allergy. --14:11 Isabella Sky R.N. History Arrived by private vehicle. Historian: patient. Accompanied by mother. Primary physician (Arely). Onset. (1 weeks ago). PAST MEDICAL HX: The patient has had a hysterectomy. SOCIAL HX: Current every day light tobacco smoker- less than 1/2 a pack per day. Occasional alcohol use. FALL RISK ASSESSMENT: Fall risk assessment completed. No fall risk identified. NUTRITIONAL RISK ASSESSMENT: The nutritional risk assessment revealed no deficiencies. FUNCTIONAL ASSESSMENT: Functional assessment: no impairments noted. LEARNING NEEDS ASSESSMENT: The learning needs assessment revealed no barriers. SKIN INTEGRITY ASSESSMENT: Skin integrity risk assessment completed. No skin integrity risk identified. --14:12 Isabella Sky R.N. PROBLEMS: Wrist Fracture. Radius Fracture. Migraine Headache. Substance Abuse. Abdominal Pain. Pyelonephritis. Cervical Strain. Back Pain. UTI - Urinary Tract Infection. Constipation. Immunizations. LNMP - Last Normal Menstrual Period. Hypertension. Dental Pain. Dental Caries. --14:12 Isabella Sky R.N. ADDITIONAL SURGERIES: Hysterectomy. Tubal Ligation. --14:12 Isabella Sky R.N. Assessment GENERAL / NEURO / PSYCH: Alert. Oriented X 4. Appears in no acute distress. Patient appears calm and cooperative. RESPIRATORY: Respirations not labored. CVS: Capillary refill less than 2 seconds. GI / : Abdomen soft and nontender. SKIN: Mucous membranes are pink. Skin is warm and dry. --14:12 Isabella Sky R.N. Interventions ID band on patient. To treatment room. --14:12 Isabella Sky R.N. PHYSICAL ASSESSMENT Ambulatory to room. GENERAL / NEURO / PSYCH: Alert. Oriented X 4. Appears in no acute distress. HEENT: Pupils equal, round and reactive to light. Hoarse voice. Mucous membranes are pink. RESPIRATORY: Respirations not labored. The patient can speak in full sentences. CVS: Capillary refill less than 2 seconds. SKIN: Skin is warm and dry. Normal skin turgor. --14:13 Isabella Sky R.N. NURSING PROGRESS NOTES 14:13 10/25/16. Patient gowned. Two patient identifiers checked. Call light placed in reach. Side rails up x 1. Bed placed in lowest position. Brakes of bed on. Patient ready for evaluation- chart flagged. --14:13 Isabella Sky R.N. 14:18 10/25/16. Checked patient name and birthdate: patient confirmed. Flu swab obtained by RN via nasal pharyngeal swab. Labeled in the presence of the patient and sent to lab. --14:18 Isabella Sky R.N. 14:53 10/25/16. Patient returned from radiology by stretcher with tech. --14:53 Isabella Sky R.N. 15:28 10/25/2016 Azithromycin PO 500 mg given. Allergies verified and confirmed 5 rights. --15:33 Isabella Sky R.N. DISPOSITION / DISCHARGE Departure time: 15:30 Oct 25 2016. Condition at departure: improved and stable. No learning barriers present. Discharge instructions provided and reviewed with the patient. Reviewed medication(s) side effects, precautions, dosing and course information. Prescription(s) given to the patient. Patient verbalized understanding. Written instructions provided in Italian. The patient was discharged by the nurse practitioner. She was discharged home and accompanied by parent. She left the Emergency Department ambulatory and via private vehicle. Parent driving. --15:55 Isbaella Sky R.N. 15:54 10/25/16. BP: 145/93. HR: 91. RR: 18. O2 saturation: 100% on room air. Temp: 98.4 F (oral). Pain level now: 11/16. --15:55 Isabella Sky R.N. Locked/Released at 10/25/2016 15:56 by Isabella Sky R.N.
--- NOTE | 2016-10-25 15:19 | ED ORDER SUMMARY ---
..... Patient: THREE STARS, WEDNESDAY A OrderSheet [facility] VisitID: [id number] [address] [place] [address] 50y, F Registration Date/Time: 10/25/2016 ORDER SHEET Weight: 68.0 kg (stated) Allergies: No Known Drug Allergy GENERAL ORDERS: Rapid Influenza Screen (Nasal Pharyngeal) (nasal pharyngeal) Urgent (14:18 10/25/2016 MWinterer R.N. per protocol) (Ack 14:20 Cedric) (14:35 MWinterer R.N.) Culture, Strep Screen Urgent (14:37 10/25/2016 Nikolas Centeno) (Ack 14:38 Cedric) (14:44 MWinterer R.N.) Chest 2V Urgent (14:37 10/25/2016 Nikolas Centeno) (Ack 14:38 Cedric) (14:53 MWinterer R.N.) MEDICATION ORDERS: Azithromycin PO 500 mg (NOW) (15:18 10/25/2016 Nikolas Centeno) (Ack 15:26 MWinterer R.N.) (15:33 MWinterer R.N.) IV FLUIDS: ORDER SHEET NOTES: [Electronically signed by Isabella Sky R.N. (15:56 10/25/2016)] [Electronically signed by Kobi Groves Dr. (23:08 10/31/2016)] [Electronically locked/signed by Isabella Sky R.N. (15:56 10/25/2016)]
--- NOTE | 2016-10-25 15:19 | ED ORDER SUMMARY ---
..... Patient: THREE STARS, WEDNESDAY A OrderSheet [facility] VisitID: [id number] [address] [place] [address] 50y, F Registration Date/Time: 10/25/2016 ORDER SHEET Weight: 68.0 kg (stated) Allergies: No Known Drug Allergy GENERAL ORDERS: Rapid Influenza Screen (Nasal Pharyngeal) (nasal pharyngeal) Urgent (14:18 10/25/2016 MWinterer R.N. per protocol) (Ack 14:20 Cedric) (14:35 MWinterer R.N.) Culture, Strep Screen Urgent (14:37 10/25/2016 Nikolas Centeno) (Ack 14:38 Cedric) (14:44 MWinterer R.N.) Chest 2V Urgent (14:37 10/25/2016 Nikolas Centeno) (Ack 14:38 Cedric) (14:53 MWinterer R.N.) MEDICATION ORDERS: Azithromycin PO 500 mg (NOW) (15:18 10/25/2016 Nikolas Centeno) (Ack 15:26 MWinterer R.N.) (15:33 MWinterer R.N.) IV FLUIDS: ORDER SHEET NOTES: [Electronically signed by Isabella Sky R.N. (15:56 10/25/2016)] [Electronically signed by Kobi Groves Dr. (23:08 10/31/2016)] [Electronically locked/signed by Isabella Sky R.N. (15:56 10/25/2016)]
--- NOTE | 2016-10-25 15:19 | ED CLINICAL REPORT ---
Clinical Report - Physicians/Mid Levels [facility] [address] [place] [address] 10/25/2016 14:01 Patient: REBECCA AVENDANO, Wednesday Time Seen: 1426. Arrived- By private vehicle. Historian- patient. HISTORY OF PRESENT ILLNESS Chief Complaint: COUGH. This started past few days and is still present. It was abrupt in onset and has been waxing/waning but is not gone now. The illness is described as moderate. The patient has had a cough, a sore throat and fever. She has had moderate amounts of yellow sputum. No chest discomfort or pain. Additional history - No known contact with a sick individual. No recent travel. Similar symptoms previously: Recent medical care: Not recently seen/assessed. REVIEW OF SYSTEMS All systems otherwise negative, except as recorded above. PAST HISTORY See nurses notes. Medications: None. Allergies: No Known Drug Allergy. SOCIAL HISTORY Smoker- current status unknown. Occasional alcohol use. No drug use. No recent travel. Is a local resident. ADDITIONAL NOTES The nursing notes have been reviewed. PHYSICAL EXAM Vital Signs: 10/25/2016 14:08 BP: 152/99. HR: 101. RR: 20. O2 saturation: 99%. Temp: 98.2 F. Oxygen saturation normal. Appearance: Alert. No acute distress. (nontoxicappearance). Eyes: Pupils equal, round and reactive to light. Eyes normal inspection. ENT: Ears normal. Nose normal. Pharynx normal. Uvula midline. Neck: Normal inspection. Neck supple. CVS: Normal heart rate and rhythm. Heart sounds normal. Pulses normal. Respiratory: No respiratory distress. Breath sounds normal. No rales, rhonchi, wheezes or stridor. Abdomen: Soft and nontender. No organomegaly. Skin: Skin warm and dry. Normal skin color. No rash. Normal skin turgor. Extremities: Extremities exhibit normal ROM. No lower extremity edema. LABS, X-RAYS, AND EKG Chest X-ray: (PROCEDURE: XR CHEST 2 VIEW INDICATION: FEVER COUGH TECHNIQUE: PA and lateral views. COMPARISON: None. FINDINGS: Mild parenchymal changes at the left lung base. Lungs are otherwise clear. Heart and mediastinum are normal. Thorax is normal. IMPRESSION: 1. Mild parenchymal changes at the left lung base compatible with pneumonia (e.g., bacterial, Mycoplasma).). Laboratory Tests: Culture, Strep Screen: (MARCIAL: 10/25/2016 14:35) ( MsgRcvd 10/25/2016 14:52) Final results Test Result Flag Units (Reference) RAPID STREP SCREEN - THROAT DATE: 10/25/16 NEGATIVE SCREEN: RAPID STREP SCREEN NEGATIVE; CONFIRMATION TO FOLLOW Rapid Influenza Screen: (MARCIAL: 10/25/2016 14:10) ( [facility] Final results SPECIMEN DESCRIPTION: NASAL PHARYNGEAL Test Result Flag Units (Reference) RAPID INFLUENZA SCREEN DATE: 10/25/16 INFLUENZA A: NEGATIVE SCREEN FOR INFLUENZA A INFLUENZA B: NEGATIVE SCREEN FOR INFLUENZA B . PROGRESS AND PROCEDURES Course of Care: the patient is a pleasant 50-year-old female with past medical history significant for prior pneumonia presenting for evaluation of symptoms that could be consistent with pneumonia, bronchitis, strep pharyngitis, or viral upper Respiratory tract infection. Patient be evaluated for chest x-ray. Patient is nontoxic and in no acute distress. Did not fill patient is septic at this time. Patient is agreeable to the treatment plan. work up was remarkable for findings noted on chest x-ray. Please see results above. Patient's rapid strep is also noted to be negative. Rapid flu is also noted to be negative as well. Because of the patient's findings here in the emergency department, patient be treated with antibiotics for her current validation/pneumonia. Patient is good outpatient candidate, appears reliable, and has good outpatient follow-up. Had discussion patient in regards to her workup here in the emergency department, home care, follow-up, and return precautions. All questions have been answered. The patient expressed understanding of these instructions and was agreeable to them. Vital signs upon discharge from the emergency department and noted to be unremarkable. Blood pressure is within normal limits. Oxygen saturations are adequate. Heart rate and Respiratory rate are normal. CLINICAL IMPRESSION 10/25/2016 14:08 BP: 152/99. HR: 101. RR: 20. O2 saturation: 99%. Temp: 98.2 F. Hypertensive. Oxygen saturation normal. Bacterial pneumonia. (lingular). Essential hypertension. INSTRUCTIONS Warnings: GENERAL WARNINGS: Return or contact your physician immediately if your condition worsens or changes unexpectedly, if not improving as expected, or if other problems arise. Specifically return if pain, vomiting, bleeding, breathing difficulty or fever. Your Current Medications: CONTINUE TAKING THE FOLLOWING MEDICATIONS: None*. Prescription Medications: Zithromax Z-John: Take according to package instructions. No refills. Substitution is permissible. Follow-up: Return to the emergency department as needed. Follow up with your doctor in three days. Reason for referral: recheck today's concerns. Summary of care provided to patient via paper. Screening today revealed the patient's blood pressure to be in the hypertensive range. The patient should follow up with a primary care provider for blood pressure management. Understanding of the discharge instructions verbalized by patient. Follow-up with: [facility], , , [address], [facility], [id number] Follow up in three days. Reason for referral: recheck today's concerns. contact if you do not have a primary care doctor. Summary of care provided to patient via paper. (Electronically signed by Kobi Groves Dr. 10/31/2016 23:08)
--- NOTE | 2016-10-25 15:19 | ED CLINICAL REPORT ---
Clinical Report - Physicians/Mid Levels [facility] [address] [place] [address] 10/25/2016 14:01 Patient: REBECCA AVENDANO, Wednesday Time Seen: 1426. Arrived- By private vehicle. Historian- patient. HISTORY OF PRESENT ILLNESS Chief Complaint: COUGH. This started past few days and is still present. It was abrupt in onset and has been waxing/waning but is not gone now. The illness is described as moderate. The patient has had a cough, a sore throat and fever. She has had moderate amounts of yellow sputum. No chest discomfort or pain. Additional history - No known contact with a sick individual. No recent travel. Similar symptoms previously: Recent medical care: Not recently seen/assessed. REVIEW OF SYSTEMS All systems otherwise negative, except as recorded above. PAST HISTORY See nurses notes. Medications: None. Allergies: No Known Drug Allergy. SOCIAL HISTORY Smoker- current status unknown. Occasional alcohol use. No drug use. No recent travel. Is a local resident. ADDITIONAL NOTES The nursing notes have been reviewed. PHYSICAL EXAM Vital Signs: 10/25/2016 14:08 BP: 152/99. HR: 101. RR: 20. O2 saturation: 99%. Temp: 98.2 F. Oxygen saturation normal. Appearance: Alert. No acute distress. (nontoxicappearance). Eyes: Pupils equal, round and reactive to light. Eyes normal inspection. ENT: Ears normal. Nose normal. Pharynx normal. Uvula midline. Neck: Normal inspection. Neck supple. CVS: Normal heart rate and rhythm. Heart sounds normal. Pulses normal. Respiratory: No respiratory distress. Breath sounds normal. No rales, rhonchi, wheezes or stridor. Abdomen: Soft and nontender. No organomegaly. Skin: Skin warm and dry. Normal skin color. No rash. Normal skin turgor. Extremities: Extremities exhibit normal ROM. No lower extremity edema. LABS, X-RAYS, AND EKG Chest X-ray: (PROCEDURE: XR CHEST 2 VIEW INDICATION: FEVER COUGH TECHNIQUE: PA and lateral views. COMPARISON: None. FINDINGS: Mild parenchymal changes at the left lung base. Lungs are otherwise clear. Heart and mediastinum are normal. Thorax is normal. IMPRESSION: 1. Mild parenchymal changes at the left lung base compatible with pneumonia (e.g., bacterial, Mycoplasma).). Laboratory Tests: Culture, Strep Screen: (MARCIAL: 10/25/2016 14:35) ( MsgRcvd 10/25/2016 14:52) Final results Test Result Flag Units (Reference) RAPID STREP SCREEN - THROAT DATE: 10/25/16 NEGATIVE SCREEN: RAPID STREP SCREEN NEGATIVE; CONFIRMATION TO FOLLOW Rapid Influenza Screen: (MARCIAL: 10/25/2016 14:10) ( [facility]) Final results SPECIMEN DESCRIPTION: NASAL PHARYNGEAL Test Result Flag Units (Reference) RAPID INFLUENZA SCREEN DATE: 10/25/16 INFLUENZA A: NEGATIVE SCREEN FOR INFLUENZA A INFLUENZA B: NEGATIVE SCREEN FOR INFLUENZA B . PROGRESS AND PROCEDURES Course of Care: the patient is a pleasant 50-year-old female with past medical history significant for prior pneumonia presenting for evaluation of symptoms that could be consistent with pneumonia, bronchitis, strep pharyngitis, or viral upper Respiratory tract infection. Patient be evaluated for chest x-ray. Patient is nontoxic and in no acute distress. Did not fill patient is septic at this time. Patient is agreeable to the treatment plan. work up was remarkable for findings noted on chest x-ray. Please see results above. Patient's rapid strep is also noted to be negative. Rapid flu is also noted to be negative as well. Because of the patient's findings here in the emergency department, patient be treated with antibiotics for her current validation/pneumonia. Patient is good outpatient candidate, appears reliable, and has good outpatient follow-up. Had discussion patient in regards to her workup here in the emergency department, home care, follow-up, and return precautions. All questions have been answered. The patient expressed understanding of these instructions and was agreeable to them. Vital signs upon discharge from the emergency department and noted to be unremarkable. Blood pressure is within normal limits. Oxygen saturations are adequate. Heart rate and Respiratory rate are normal. CLINICAL IMPRESSION 10/25/2016 14:08 BP: 152/99. HR: 101. RR: 20. O2 saturation: 99%. Temp: 98.2 F. Hypertensive. Oxygen saturation normal. Bacterial pneumonia. (lingular). Essential hypertension. INSTRUCTIONS Warnings: GENERAL WARNINGS: Return or contact your physician immediately if your condition worsens or changes unexpectedly, if not improving as expected, or if other problems arise. Specifically return if pain, vomiting, bleeding, breathing difficulty or fever. Your Current Medications: CONTINUE TAKING THE FOLLOWING MEDICATIONS: None*. Prescription Medications: Zithromax Z-John: Take according to package instructions. No refills. Substitution is permissible. Follow-up: Return to the emergency department as needed. Follow up with your doctor in three days. Reason for referral: recheck today's concerns. Summary of care provided to patient via paper. Screening today revealed the patient's blood pressure to be in the hypertensive range. The patient should follow up with a primary care provider for blood pressure management. Understanding of the discharge instructions verbalized by patient. Follow-up with: [facility], , , [address], [facility], [id number] Follow up in three days. Reason for referral: recheck today's concerns. contact if you do not have a primary care doctor. Summary of care provided to patient via paper. (Electronically signed by Kobi Groves Dr. 10/31/2016 23:08)
--- NOTE | 2016-10-25 15:19 | ED NURSING NOTES ---
Clinical Report - Nurses [facility] [place] [address] 10/25/2016 14:01 Patient: REBECCA AVENDANO, Wednesday TRIAGE Acuity: LEVEL 3. Chief Complaint: COUGH and SORE THROAT. Alert. No acute distress. SEPSIS SCREEN: Sepsis Screen. Negative (no infection suspected/documented). --14:12 Isabella Sky R.N. 14:08 10/25/16. BP: 152/99. HR: 101. RR: 20. O2 saturation: 99% on room air. Temp: 98.2 F (oral). --14:12 sIabella Sky R.N. Weight: 68 kg stated. Height/Length: 70 inches Per Patient. BMI: 21.5. --14:10 Isabella Sky R.N. Medications None. --14:11 Isabella Sky R.N. Allergies No Known Drug Allergy. --14:11 Isabella Sky R.N. History Arrived by private vehicle. Historian: patient. Accompanied by mother. Primary physician (Arely). Onset. (1 weeks ago). PAST MEDICAL HX: The patient has had a hysterectomy. SOCIAL HX: Current every day light tobacco smoker- less than 1/2 a pack per day. Occasional alcohol use. FALL RISK ASSESSMENT: Fall risk assessment completed. No fall risk identified. NUTRITIONAL RISK ASSESSMENT: The nutritional risk assessment revealed no deficiencies. FUNCTIONAL ASSESSMENT: Functional assessment: no impairments noted. LEARNING NEEDS ASSESSMENT: The learning needs assessment revealed no barriers. SKIN INTEGRITY ASSESSMENT: Skin integrity risk assessment completed. No skin integrity risk identified. --14:12 Isabella Sky R.N. PROBLEMS: Wrist Fracture. Radius Fracture. Migraine Headache. Substance Abuse. Abdominal Pain. Pyelonephritis. Cervical Strain. Back Pain. UTI - Urinary Tract Infection. Constipation. Immunizations. LNMP - Last Normal Menstrual Period. Hypertension. Dental Pain. Dental Caries. --14:12 Isabella Sky R.N. ADDITIONAL SURGERIES: Hysterectomy. Tubal Ligation. --14:12 Isabella Sky R.N. Assessment GENERAL / NEURO / PSYCH: Alert. Oriented X 4. Appears in no acute distress. Patient appears calm and cooperative. RESPIRATORY: Respirations not labored. CVS: Capillary refill less than 2 seconds. GI / : Abdomen soft and nontender. SKIN: Mucous membranes are pink. Skin is warm and dry. --14:12 Isabella Sky R.N. Interventions ID band on patient. To treatment room. --14:12 Isabella Sky R.N. PHYSICAL ASSESSMENT Ambulatory to room. GENERAL / NEURO / PSYCH: Alert. Oriented X 4. Appears in no acute distress. HEENT: Pupils equal, round and reactive to light. Hoarse voice. Mucous membranes are pink. RESPIRATORY: Respirations not labored. The patient can speak in full sentences. CVS: Capillary refill less than 2 seconds. SKIN: Skin is warm and dry. Normal skin turgor. --14:13 Isabella Sky R.N. NURSING PROGRESS NOTES 14:13 10/25/16. Patient gowned. Two patient identifiers checked. Call light placed in reach. Side rails up x 1. Bed placed in lowest position. Brakes of bed on. Patient ready for evaluation- chart flagged. --14:13 Isabella Sky R.N. 14:18 10/25/16. Checked patient name and birthdate: patient confirmed. Flu swab obtained by RN via nasal pharyngeal swab. Labeled in the presence of the patient and sent to lab. --14:18 Isabella Sky R.N. 14:53 10/25/16. Patient returned from radiology by stretcher with tech. --14:53 Isabella Sky R.N. 15:28 10/25/2016 Azithromycin PO 500 mg given. Allergies verified and confirmed 5 rights. --15:33 Isabella Sky R.N. DISPOSITION / DISCHARGE Departure time: 15:30 Oct 25 2016. Condition at departure: improved and stable. No learning barriers present. Discharge instructions provided and reviewed with the patient. Reviewed medication(s) side effects, precautions, dosing and course information. Prescription(s) given to the patient. Patient verbalized understanding. Written instructions provided in Urdu. The patient was discharged by the nurse practitioner. She was discharged home and accompanied by parent. She left the Emergency Department ambulatory and via private vehicle. Parent driving. --15:55 Isabella Sky R.N. 15:54 10/25/16. BP: 145/93. HR: 91. RR: 18. O2 saturation: 100% on room air. Temp: 98.4 F (oral). Pain level now: 11/16. --15:55 Isabella Sky R.N. Locked/Released at 10/25/2016 15:56 by Isabella Sky R.N.
--- NOTE | 2016-10-25 16:03 | DIAGNOSTIC IMAGING REPORT ---
PROCEDURE: XR CHEST 2 VIEW INDICATION: FEVER COUGH TECHNIQUE: PA and lateral views. COMPARISON: None. FINDINGS: Mild parenchymal changes at the left lung base. Lungs are otherwise clear. Heart and mediastinum are normal. Thorax is normal. IMPRESSION: 1. Mild parenchymal changes at the left lung base compatible with pneumonia (e.g., bacterial, Mycoplasma). 2. Otherwise negative chest.
--- NOTE | 2016-10-31 23:09 | ED MED RECONCILIATION SUMMARY ---
Patient: THREE STARS, WEDNESDAY A Medication Reconciliation Report [facility] VisitID: [id number] [address] [place] [address] 50y, F Registration Date/Time: 10/25/2016 Weight: 68.0 kg Height/Length: 70 in. BMI: 21.5 ALLERGIES: No Known Drug Allergy The patient's Home Medications are listed below: NONE. The source(s) of the original Home Medication information: Not obtained. The following Medications were given to the patient in the Emergency Department: Azithromycin [PO] PO 500 mg, administered: 10/25/2016 3:28:00 PM The following Medications were prescribed to the patient: Zithromax Z-John: Take according to package instructions. No refills. Substitution is permissible. -- Kobi Groves Dr.
--- NOTE | 2016-10-31 23:09 | ED DISCHARGE INSTRUCTIONS ---
Patient: THREE STARS, Wednesday General Instructions [facility] VisitID: [id number] [address] [place] [address] 50y, F Registration Date/Time: 10/25/2016 10/25/2016 14:08 BP: 152/99. HR: 101. RR: 20. O2 saturation: 99%. Temp: 98.2 F. Hypertensive. Oxygen saturation normal. Bacterial pneumonia. (lingular). Essential hypertension. INSTRUCTIONS Warnings: GENERAL WARNINGS: Return or contact your physician immediately if your condition worsens or changes unexpectedly, if not improving as expected, or if other problems arise. Specifically return if pain, vomiting, bleeding, breathing difficulty or fever. Your Current Medications: CONTINUE TAKING THE FOLLOWING MEDICATIONS: None*. Prescription Medications: Zithromax Z-John: Take according to package instructions. No refills. Substitution is permissible. Follow-up: Return to the emergency department as needed. Follow up with your doctor in three days. Reason for referral: recheck today's concerns. Summary of care provided to patient via paper. Screening today revealed the patient's blood pressure to be in the hypertensive range. The patient should follow up with a primary care provider for blood pressure management. Understanding of the discharge instructions verbalized by patient. Follow-up with: [facility], , , [address], [place], [address] Follow up in three days. Reason for referral: recheck today's concerns. contact if you do not have a primary care doctor. Summary of care provided to patient via paper. ADDITIONAL INFORMATION High Blood Pressure -- To Be Confirmed [No Tx] Your blood pressure was higher today than normal. Sometimes anxiety or pain can cause a temporary rise in blood pressure that later returns to normal. If your blood pressure is high on one measurement, this does not mean that you have hypertension (a chronic illness). However, you must have your blood pressure measured again within the next few days to find out if its still high. A normal blood pressure is 120/80 or less. The first (top) number is the "systolic" pressure. The second (bottom) number is the "diastolic" pressure. Hypertension exists when either the top number is 140 or higher, OR the bottom number is 90 or higher on repeated measurements. Blood pressure in the range of 120-140 (systolic) or 80-89 (diastolic) is considered "pre-hypertension". This means your are at risk for getting hypertension. You should have regular blood pressure checks to be sure your blood pressure is not rising. Home Care: Measure your blood pressure on 3 different days and write down the results. This can be done at your doctor's office or this facility. Some pharmacies and grocery stores offer automated blood pressure machines for your use. Follow Up: If your blood pressure is "high" (over 120/80) on 2 out of 3 days, you will need to follow up with your doctor for further evaluation and treatment. DO NOT PUT THIS OFF! Untreated high blood pressure increases the risk for heart attack, also known as acute myocardial infarction, or AMI, and stroke. It is a treatable condition. Get Prompt Medical Attention if any of the following occur: Chest pain or shortness of breath Severe headache Throbbing or rushing sound in the ears Nosebleed Sudden severe abdominal pain Extreme drowsiness, confusion or fainting Dizziness or vertigo (dizziness with spinning sensation) Weakness of an arm or leg or one side of the face Difficulty with speech or vision Pneumonia (Adult) Pneumonia is an infection deep within the lung, in the small air sacs (alveoli). It may be due to a virus or bacteria and is usually treated with an antibiotic. Severe cases require treatment in the hospital. Milder cases can be treated at home. Symptoms usually start to improve during the first2 days of treatment. Home Care: Rest at home for the first 23 days or until you feel stronger. When resuming activity, dont let yourself become overly tired. Avoid exposure to cigarette smoke (yours or others). You may use acetaminophen (Tylenol) or ibuprofen (Motrin, Advil) to control fever or pain, unless another medicine was prescribed. [NOTE: If you have chronic liver or kidney disease or ever had a stomach ulcer or GI bleeding, talk with your doctor before using these medicines.] (Aspirin should never be used in anyone under 18 years of age who is ill with a fever. It may cause severe liver damage.) Your appetite may be poor so a light diet is fine. Keep well hydrated by drinking 68 glasses of fluids per day (water, sport drinks such as Gatorade, sodas without caffeine, juices, tea, soup, etc.). This will help loosen secretions in the lung, making it easier for you to cough up the phlegm (sputum). If you also have heart or kidney disease, check with your doctor before you drink extra amounts of fluids. Finish all antibiotic medicine prescribed, even if you are feeling better after a few days. Follow Up with your doctor in the next 23 days (or as advised) to be sure you are responding properly to the medicine. [NOTE: If you are age 65 or older, or if you have chronic lung disease (asthma, emphysema or COPD), we recommendthe pneumococcal vaccination and a yearlyinfluenzavaccination(flu-shot) every . Ask your doctor about this.] Get Prompt Medical Attention if any of the following occur: Not getting better within the first 48 hours of treatment Increasing shortness of breath or rapid breathing (over 25 breaths/minute) Coughing up blood or increasing chest pain with breathing Fever of 100.4F (38C) oral or higher, not better with fever medication Increasing weakness, dizziness or fainting Increasing thirst or dry mouth Sinus pain, headache or a stiff neck Chest pain not caused by coughing You have been given the following additional information: Hypertension, To Be Confirmed Pneumonia (Adult) (Electronically signed by Kobi Groves Dr. 10/31/2016 23:08)
--- NOTE | 2016-10-31 23:09 | ED MAR SUMMARY ---
..... Medication Administration Record [facility] [address] [place] [address] Patient: REBECCA , Wednesday Visit ID: [id number] 50y, F Weight: 68.0 kg Height/Length: 70 in BMI: 21.5 ALLERGIES: No Known Drug Allergy Given 15:28 10/25/2016 Isabella Sky R.N. Medication Administered: AZITHROMYCIN [PO], Dose: 500 mg PO. Medication Ordered: Azithromycin PO 500 mg (NOW).
--- NOTE | 2016-10-31 23:09 | ED MAR SUMMARY ---
..... Medication Administration Record [facility] [address] [place] [address] Patient: REBECCA , Wednesday Visit ID: [id number] 50y, F Weight: 68.0 kg Height/Length: 70 in BMI: 21.5 ALLERGIES: No Known Drug Allergy Given 15:28 10/25/2016 Isabella Sky R.N. Medication Administered: AZITHROMYCIN [PO], Dose: 500 mg PO. Medication Ordered: Azithromycin PO 500 mg (NOW).
--- NOTE | 2016-10-31 23:09 | ED MED RECONCILIATION SUMMARY ---
Patient: THREE STARS, WEDNESDAY A Medication Reconciliation Report [facility] VisitID: [id number] [address] [place] [address] 50y, F Registration Date/Time: 10/25/2016 Weight: 68.0 kg Height/Length: 70 in. BMI: 21.5 ALLERGIES: No Known Drug Allergy The patient's Home Medications are listed below: NONE. The source(s) of the original Home Medication information: Not obtained. The following Medications were given to the patient in the Emergency Department: Azithromycin [PO] PO 500 mg, administered: 10/25/2016 3:28:00 PM The following Medications were prescribed to the patient: Zithromax Z-John: Take according to package instructions. No refills. Substitution is permissible. -- Kobi Groves Dr.
== END 2016-10-25 15:30 | disposition home or self-care (01) ==
LOC: ED SRH 14:02
DX: J15.9 Unspecified bacterial pneumonia (principal); I10 Essential (primary) hypertension; Z90.710 Acquired absence of both cervix and uterus
CPT/HCPCS: 90154; 90159; 90627; 91400